=== PATIENT | male | born 2000 | race Caucasian/White ===

== ENCOUNTER 2020-11-09 14:34 | Emergency (ER) | payer OTHER, SELFPAY ==
--- NOTE | ~2020-11-09 | XR_ITS ---
EXAMINATION: XR hand RT min 3V DATE: 11/09/2020 15:02 INDICATION: Right hand injury with pain at the third metacarpal TECHNIQUE: Posteroanterior, oblique and lateral views of the right hand were obtained. COMPARISON: None. FINDINGS: Alignment is normal. No fracture. Joint spaces are normal. Soft tissue swelling dorsal to the head of the third metacarpal. IMPRESSION: 1. No acute osseous abnormality. Reviewed, dictated and finalized at location A.
[2020-11-09 14:45] VITALS: BP 124/72; PULSE 73; RESP 19; TEMP 36.7; O2SAT 99
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
== END 2020-11-09 15:20 | disposition home or self-care (01) ==
PROVIDERS: Emergency Provider Nurse Practitioner
DX: S69.91XA Unspecified injury of right wrist, hand and finger(s), initial encounter (principal); W51.XXXA Accidental striking against or bumped into by another person, initial encounter; Y93.71 Activity, boxing
CPT/HCPCS: 73130; 99213; G0463

== ENCOUNTER 2024-11-19 03:26 | Emergency (ER) | payer MEDICAID, SELFPAY ==
--- OUTSIDE RECORDS SUMMARY | 2024-11-19 03:28 | XMS_ITS ---
Author Organization [facility] Address [address] [place] [address] Care Team Providers Care Property Manager Name Role Phone Ramya Forrest [phone] REASON FOR VISIT new eval Encounters Encounter Location Date Provider Diagnosis [address] [place] [address] 06/01/2023 Ramya Forrest Plan Of Treatment No Information Progress Notes * ELISAWesDOB: [birth year] (24 yo M)Acc No.[id number]:06/01/2023 UNLOCKED PROGRESS NOTE Patient: Wes WHEELER Provider: Laxmi Forrest DNP, APRN, PMHNP-BC :2000 A ge:23 Y S ex:Male Date:06/01/2023 Address:[address] , [address], [place], [id number] Subjective: * Chief Complaints: * 1 . New eval. * Medical History: Objective: * Vitals: Assessment: Plan: * Treatment: * * Electronic signature of Nicole Baxter [id number] on 11/19/2024 at 03:28 AM CDT Sign off status: Pending * Provider: Laxmi Forrest DNP, APRN, PMHNP-BC Date: 08/01/2022 Generated for Printing/Faxing/eTransmitting on: 11/19/2024 03:28 AM CDT
--- OUTSIDE RECORDS SUMMARY | 2024-11-19 03:28 | XMS_ITS | Clinical Summary ---
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 Gender Identity Not on file Sexual Orientation Not on file Plan of Treatment Health Maintenance Due Date Last Done Comments Hepatitis C Virus (HCV) Screening 2000 Influenza Immunization (#1) 03/11/202405/11, 06/08/2013, 07/19/2012, Additional history exists SARS-COV-2 Immunization ( season) 2024 Respiratory Syncytial Virus (RSV) Immunization (Adult) (1 - 1-dose 75+ series) 2075 Pneumococcal Immunization Combined Aged Out 07/31/2001, 2000, 2000 No longer eligible based on patient's age to complete this topic Hepatitis B Immunization Completed 002, 2000, 2000 DTaP/Tdap/Td Immunization Discontinued 2011, 06/09/2004, 12/18/2001, Additional history exists TdaP Immunization Completed 11/17/2011 Human Papillomavirus (HPV) Immunization Completed 06/08/2013, 02/06/2013, 11/30/2012 Meningococcal Immunization (ACWY) Completed 05/19/2016, 11/17/2011 Rotavirus Immunization Aged Out No lo nger eligible based on patient's age to complete this topic
--- OUTSIDE RECORDS SUMMARY | 2024-11-19 03:28 | XMS_ITS | Patient Health Record ---
Author Organization formerly [facility] Address [address] [place] [address] Support Name Relationship Address Phone Wes Connolly Guarantor Unknown Reason For Referral No Information Plan Of Treatment No Information Insurance Providers Payer Name Payer Address Payer Phone Subscriber Number Group Number Insured Name Patient Relationship to Insured Coverage Start Date Coverage End Date [facility] [address] [place] [phone] [id number] Wes Connolly Self - patient is the insured 3
[2024-11-19 03:37] VITALS: BP 148/98; PULSE 80; RESP 15; TEMP 36.7; O2SAT 97
[2024-11-19] MEDS: IBUPROFEN 400 MG TABLET 800 MG PO (03:43)
[2024-11-19] MEDS: ACETAMINOPHEN 500 MG TABLET 1000 MG PO (03:43)
--- NOTE | 2024-11-19 03:43 | ED.GENADULT ---
HPI - General Adult General Chief complaint: Dental/Oral Stated complaint: dental pain Time Seen by Provider: 11/19/24 03:39 History of Present Illness HPI narrative: This is a 24-year-old male presenting with dental pain. Patient has a large cavity in his bottom right molar. He has not seen a dentist yet. No swelling, difficulty breathing or swallowing or fevers. Related Data Allergies Allergy/AdvReac Type Severity Reaction Status Date / Time amoxicillin Allergy Intermediate THROAT Verified 11/19/24 03:27 SWELLING clavulanic acid Allergy Intermediate THROAT Verified 11/19/24 03:27 SWELLING Exam Narrative: APPEARANCE: No apparent distress. Head: Large cavity to the bottom right molar EYES: EOMI, NOSE: Atraumatic NECK: Trachea midline RESPIRATORY: No increased rate of breathing CARDIOVASCULAR: RRR, ABDOMINAL: Non-distended MUSCULOSKELETAl: No obvious deformities NEURO: Alert. Moving 4/4 extremities SKIN:: Warm, dry. Normal color PSYCHIATRIC: Normal affect Course Vital Signs Vital signs: Vital Signs Temperature 98.1 F 11/19/24 03:37 Pulse Rate 80 11/19/24 03:37 Respiratory Rate 15 11/19/24 03:37 Blood Pressure 148/98 H 11/19/24 03:37 Pulse Oximetry 97 11/19/24 03:37 Oxygen Delivery Room Air 11/19/24 03:37 Temperature 98.1 F 11/19/24 03:37 Pulse Rate 80 11/19/24 03:37 Respiratory Rate 15 11/19/24 03:37 Blood Pressure 148/98 H 11/19/24 03:37 Pulse Oximetry 97 11/19/24 03:37 Oxygen Delivery Room Air 11/19/24 03:37 Procedures Nerve Block Nerve Block 1: Nerve block date: 11/19/24 Time out performed: Yes Local Anesthetic: bupivacaine 0.25% Amount of anesthesia used (mL): 4 Side: right Intraoral Nerve Block: inferior alveolar Procedure Successful: Yes Patient Tolerated Procedure: well Complications: none Medical Decision Making MDM Narrative Medical decision making narrative: -Course: 24-year-old male presenting with dental pain. Inferior alveolar block performed with moderate success. Treated Motrin Tylenol. Discharged with dental follow-up. Vital Signs Vital Signs: Vital Signs Temperature 98.1 F 11/19/24 03:37 Pulse Rate 80 11/19/24 03:37 Respiratory Rate 15 11/19/24 03:37 Blood Pressure 148/98 H 11/19/24 03:37 Pulse Oximetry 97 11/19/24 03:37 Oxygen Delivery Room Air 11/19/24 03:37 Temperature 98.1 F 11/19/24 03:37 Pulse Rate 80 11/19/24 03:37 Respiratory Rate 15 11/19/24 03:37 Blood Pressure 148/98 H 11/19/24 03:37 Pulse Oximetry 97 11/19/24 03:37 Oxygen Delivery Room Air 11/19/24 03:37 Discharge Plan Discharge Clinical Impression: Dental caries Patient Disposition: Home Condition: Stable Instructions: Antibiotic Form, Toothache (ED) Additional Instructions: You were seen in the emergency department for toothache. Please use Motrin Tylenol for pain. Complete course of Augmentin. He must see a dentist for further management. Return if you develop any new or worsening symptoms. Patient Language: Nigerian Prescriptions: New ibuprofen 800 mg tablet 800 mg PO TID PRN (Reason: pain) 7 Days Qty: 21 0RF acetaminophen 500 mg tablet 1,000 mg PO TID PRN (Reason: saritha) 7 Days Qty: 42 0RF clindamycin HCl [Cleocin HCl] 150 mg capsule 450 mg PO Q6H 7 Days Qty: 84 0RF Follow-up/Referrals: UNKNOWN,DOCTOR [Primary Care Provider] - Stand Alone Forms: Work/School Release IP
--- OUTSIDE RECORDS SUMMARY | 2024-11-19 04:02 | XMS_ITS | Clinical Summary ---
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
== END 2024-11-19 04:30 | disposition home or self-care (01) ==
PROVIDERS: Emergency Provider Emergency Medicine
DX: K02.9 Dental caries, unspecified (principal)
CPT/HCPCS: 12002; 31899; 64400; 99283; A9270